=== PATIENT | male | born 1965 | race Two or more races ===

== ENCOUNTER 2025-01-24 20:59 | Emergency (ER) | payer MEDICARE ==
[~2025-01-24] VITALS: Ht 167.6 cm; Wt 86.2 kg
[2025-01-24] MEDS ORDERED: TRAZ-257 PO (21:18)
[2025-01-24] MEDS ORDERED: GABA300C PO (21:18)
[2025-01-24] MEDS ORDERED: NIFE10CA57 (21:28)
[2025-01-24] MEDS ORDERED: OLME5TAB3 (21:28)
[2025-01-24] MEDS ORDERED: CARV6.252 (21:28)
[2025-01-24 22:38] LABS: PLATELET COUNT (AUTO) 190 K/uL (152-348); RED BLOOD CELL COUNT(AUTO) 3.68 MIL/uL (4.06-5.63); RED CELL DISTRIBUTION WIDTH 16.0 % (12.1-16.2); WHITE BLOOD COUNT (AUTO) 6.3 K/uL (3.6-10.2)
[2025-01-24 22:49] LABS: CREATININE 6.5 mg/dL (0.6-1.3); SODIUM SERUM 138.0 mmol/L (136-145); UREA NITROGEN, BLOOD 33.0 mg/dL (7-18)
[2025-01-24 22:54] LABS: ASPARTATE AMINOTRANSFERASE 26.0 U/L (15-37); TOTAL PROTEIN, SERUM 8.1 g/dL (6.4-8.2)
[2025-01-25 00:34] VITALS: BP 161/72
[2025-01-25 00:49] VITALS: BP 161/72; O2SAT 97
== END 2025-01-25 00:49 | disposition home or self-care (01) ==
LOC: ER 21:13
DX: R60.0 Localized edema (principal); E87.70 Fluid overload, unspecified; E11.22 Type 2 diabetes mellitus with diabetic chronic kidney disease; N18.6 End stage renal disease; Z88.7 Allergy status to serum and vaccine; Z99.2 Dependence on renal dialysis
CPT/HCPCS: 36415; 70450; 71045; 84484; 85025; A4606; A4663